=== PATIENT | male | born 1950 | race Caucasian/White ===

== ENCOUNTER → 2024-02-24 | Outpatient (CLI) | payer MEDICARE ==
--- NOTE | 2024-02-25 08:17 | MR ---
EXAMINATION TYPE: MR Prostate wo/w con DATE OF EXAM: 02/24/2024 8:36 AM COMPARISON: None. CLINICAL INDICATION: Male, 73 years old with history of R97.20 ELEVATED PSA; Elevated PSA TECHNIQUE: Multi-planar, multi-sequence imaging of the pelvis is performed prior to and following the uncomplicated administration of bolus intravenous gadolinium. CONTRAST: 8 Gadobutrol Interpretive Criteria: PI-RADS v2.1 SERUM PSA: 10/2022= 3.58, 01/2024=5.13 SURGICAL PATHOLOGY: No data available. FINDINGS: Prostatic dimensions: 5.6 x 5.9 x 4.1 cm. Ellipsoid Volume:70.93 (PSA density=0.07 ng/mL/mL) CENTRAL GLAND (Central and Transition Zones/CZ+TZ): Multiple bilateral, heterogenous appearing hypertrophic stromal nodules, without suspicious lesion. M edian lobe hypertrophy with protrusion into the base of the bladder. (PI-RADS 2) PERIPHERAL ZONE (PZ): Bilateral linear, indistinct wedgelike areas of low ADC, and low T2 signal, No evidence of masslike a bnormality, or localized perfusional hypervascularity, to further suggest a focus of clinically signi ficant prostate cancer. (PI-RADS 2) SEMINAL VESICLES (SV): Symmetric and unremarkable. PERIPROSTATIC TISSUES: Unremarkable. LYMPH NODES: No enlarged pelvic lymph node. REMAINING PELVIS: Bladder wall is within normal limits given distention. No abnormal free or organized intrapelvic fluid collection. No pathologic bowel dilation or mural thickening. Colonic diverticula are present. No hernia visualized OSSEOUS STRUCTURES: No suspicious osseous abnormality. IMPRESSION: 1. No specific features for high-risk prostate cancer. Maximum PI-RADS score: 2. 2. Moderate BPH, estimated gland volume 70.93 mL. 3. No suspicious osseous lesion. No lymphadenopathy. No evidence of prostate adenocarcinoma involving the periprostatic tissues. [facility], , 02/25/2024 8:15 AM
== END | disposition home or self-care (01) ==
LOC: RADMRIMAIN 07:23
PROVIDERS: ATTEND Urology
CPT/HCPCS: 72197